=== PATIENT | female | born 1990 | race Caucasian/White ===

== ENCOUNTER 2016-12-20 20:50 | Inpatient (IN) ==
[2016-12-20] MEDS: LACTATED RINGERS 1,000 ML IV SCH (21:15)
[2016-12-20 22:05] LABS: Apearance,Urine Clear (Clear); Bilirubin,Urine Negative (Negative); Blood, Urine NEGATIVE (Negative); Glucose,Urine (UA) Negative (Negative); Hyaline Casts,Urine 1 /LPF (0-3); Ketones,Urine Negative (Negative); Mucus,Urine Occasional /LPF (Occasional); Nitrite,Urine Negative (Negative); Protein,Urine Negative; Urine Color Straw (Yellow); Urine Specific Gravity 1.005 (1.001-1.035)
[2016-12-20 22:06] LABS: Urine Urobilinogen 0.2 EU/DL (0.2-1.0)
[2016-12-21] MEDS: LACTATED RINGERS 1,000 ML IV SCH ×3 (00:44→08:15)
[2016-12-21] MEDS ORDERED: MEPERIDINE 50 MG/1 ML VIAL IV PRN (00:46)
[2016-12-21] MEDS ORDERED: ONDANSETRON 4 MG/2 ML VIAL IV PRN (00:46)
[2016-12-21] MEDS ORDERED: FAMOTIDINE 20 MG/2 ML VIAL IV ONE (02:47)
[2016-12-21] MEDS ORDERED: CITRIC ACID/SODIUM CITRATE 30 ML UDCUP PO ONE (02:47)
[2016-12-21] MEDS ORDERED: fentaNYL 2 MCG/ROPIV 0.2% EPID 150 ML EPIDURAL SCH (02:48)
[2016-12-21] MEDS ORDERED: ePHEDrine 50 MG/ML AMP ONE (02:59)
[2016-12-21] MEDS ORDERED: LACTATED RINGERS 1,000 ML IV SCH (03:00)
[2016-12-21 03:27] LABS: Basophils % 0.2 % (0.0-0.8); Eosinophils # 0.1 10*3/uL (0.0-0.87); Eosinophils % 1.1 % (0.00-10.9); Hematocrit 31.6 VOL% (35.7-47.0); Hemoglobin 10.8 GM/DL (12.0-16.0); Immature Granulocytes % 0.3 %; Immature Granulocytes Absolute 0.04 #; Lymphocytes # 2.2 10*3/uL (1.4-4.0); Mean Corpuscular HGB Conc 34.2 GM/DL (32-36); Mean Corpuscular Hemoglobin 32 PG (27-34); Mean Corpuscular Volume 92.1 FL (87-102); Mean Platelet Volume 11.9 FL (9.6-12.0); Monocytes # 1.1 10*3/uL (0.11-0.8); Monocytes % 9.1 % (1.7-12.7); Neutrophils # 8.8 10*3/uL (1.4-7.4); Neutrophils % 71.3 % (38.7-73.9); Platelet Count 248 T/CUMM (130-400); Red Blood Count 3.43 MC/CUMM (3.8-5.5); Red Cell Distribution Width 13.5 % (9.3-17.3); White Blood Count 12.3 T/CUMM (4-12)
[2016-12-21 03:39] LABS: Alanine Aminotransferase 10 U/L (13-56); Albumin 2.7 G/DL (3.4-5.0); Alkaline Phosphatase 154 U/L (45-117); Aspartate Amino Transferase 12 U/L (0-37); Bilirubin,Total < 0.39 MG/DL (0.2-1.0); Blood Urea Nitrogen 5 MG/DL (7-18); Calcium 8.4 MG/DL (8.5-10.1); Glucose 79 MG/DL (74-106); Osmolality,Calculated 270.7 MOS/KG (273-304); Potassium 3.8 MMOL/L (3.5-5.1); Sodium 138 MMOL/L (136-145); Total Protein 5.4 G/DL (6.4-8.3)
[2016-12-21] MEDS ORDERED: OXYTOCIN/LR 20 UNIT/1,000 ML BAG IV SCH (04:51)
[2016-12-21] MEDS ORDERED: METHYLERGONOVINE 0.2 MG/1 ML AMP ONE (10:05)
[2016-12-21] MEDS ORDERED: miSOPROStol 200 MCG TABLET ONE (10:05)
[2016-12-21] MEDS ORDERED: LIDOCAINE 1% 50 ML VIAL ONE (10:05)
--- NOTE | 2016-12-21 10:52 | OB/GYN History & Physical ---
History of Present Illness Chief complaint: In for c/o uterine contractions. History of present illness: Ms. Billings is a 26 year old female sent to the labor department with complaints of painful regular uterine contractions. Her BENIGNO is 12/28/2016 for an estimated gestational age of 38 and 6/7 weeks. The patient was admitted for management of early labor. The risks and benefits were thoroughly discussed with this patient and she is in agreement with plan. The patient began her care [facility] and she received routine care, her course was uneventful. labs: She is a positive, serologies nonreactive, hepatitis B negative, HIV negative, and GBS culture negative. The patient had a previous bilateral delivery of a viable weighing 6 pounds and 7 ounces she reported no complications with that . Review of systems is negative with exception of above. Home Medications Medication Instructions Recorded Confirmed Type Pantoprazole Tab [Protonix Tab] 40 mg PO DAILY 03/12/15 12/20/16 History Zolpidem Tartrate [Ambien] 10 mg PO BEDTIME 03/12/15 12/20/16 History Allergies Allergy/AdvReac Type Severity Reaction Status Date / Time Penicillins Allergy Severe SHORTNESS Verified 03/13/15 07:45 OF BREATH clindamycin [From Cleocin] AdvReac Mild Redness of Verified 12/20/16 21:21 Skin 12 point system: reviewed and no additional remarkable complaints except as stated Medical,Surgical,& Family Hx - Medical History Psychological: History of: ADHD (INATTENTIVE & HYPERACTIVE) No history of: Anxiety Disorders Neurology: History of: Migraine (HX CHRONIC MIGRAINES AGE 16-19 WITH MENSUS) HEENT: History of: 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) Gastrointestinal: History of: GERD, GI Problems (HIATAL HERNIA) Musculoskeletal: History of: Back/Neck Problems (NECK PAIN), Degenerative Disk Disease, Musculoskeletal Problems (SPONDYLOSIS 2012) Reproductive: History of: Ovarian Cysts (RESOLVED) Comment Only: Reproductive Problems (X1 -NO COMPLICATIONS) Other: History of: Skin Problems (HX LT PERINEAL ABSCESS DRAINAGE 08/24;FOR I&D LT AXILLARY ABSCESS 03/13/15), Miscellaneous Medical Problems (hydrodenitis) - Surgical History Thoracic Surgeries: Patient denies;: Organ Transplant, Lobectomy Abdominal Surgeries: Surgical HX of: EGD Orthopedic Surgeries: Comment Only: Spinal Surgery (NERVE ABLATIONS DR. 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 - Constitutional Vitals: Vital Signs Temp Pulse Resp BP Pulse Ox 12/21/16 07:05 97.5 F L 18 12/21/16 04:00 97.7 F 65 18 127/70 100 12/21/16 02:48 97.9 F 61 20 110/59 12/21/16 00:00 98.3 F 71 20 106/53 12/20/16 21:04 81 20 102/64 98 General appearance: mild distress - Antepartum / Post Antpartum Exam Cervix -Dilatation: 3 cm upon admission Effacement: 70% Station: -1 Presentation: vtx Heart Rate: 140s Abdomen obstetrics: Present: bowel sounds normal Vagina: Present: normal moisture Uterus exam: Present: enlarged Anus/Rectum: Present: normal perianal skin - Neck Neck exam: Present: normal inspection - Respiratory Respiratory exam: Present: clear to auscultation bilaterally - Cardiovascular Cardiovascular exam: Present: regular rate and rhythm - GI/Abdominal GI/Abdominal exam: Present: normal bowel sounds, soft - Extremities Exam Extremities exam: Present: normal inspection - Back Exam Back exam: Present: normal inspection - Neurological Exam Neurological exam: Present: alert, oriented X3 - Psychiatric Psychiatric exam: Present: normal affect, normal mood - Skin Skin exam: Present: normal color, warm Assessment and Plan (1) Active labor at term Status: Acute Assessment and plan: Admit IV Fluids IV Pitocin per protocol Epidural AROM if appropriate Anticipate Current Visit: Yes Results - Labs CBC & BMP: 12/21/16 03:08 12/21/16 03:08
[2016-12-21] MEDS ORDERED: BISACODYL 10 MG SUPP RECTAL PRN (10:56)
[2016-12-21] MEDS ORDERED: DIPH/TET/ACEL PERT BOOSTER VACCINE 0.5 ML VIAL IM ONE (10:56)
[2016-12-21] MEDS ORDERED: HYDROCORTISONE 2.5% RECTAL CREAM 30 GM TUBE TOP PRN (10:56)
[2016-12-21] MEDS ORDERED: WITCH HAZEL PADS 100/JAR TOP PRN (10:56)
[2016-12-21] MEDS ORDERED: RHO(D) IMMUNE GLOBULIN 300 MCG SYRINGE IM ONE (10:56)
[2016-12-21] MEDS ORDERED: MEASLES/MUMPS/RUBELLA VACCINE 0.5 ML VIAL SUBCUT ONE (10:56)
[2016-12-21] MEDS ORDERED: oxyCODONE/ACETAMINOPHEN 5-325 MG TABLET PO PRN (10:56)
[2016-12-21] MEDS ORDERED: ACETAMINOPHEN 325 MG TABLET PO PRN (10:56)
[2016-12-21] MEDS ORDERED: LANOLIN 50% CREAM 0.3 OZ TUBE TOP PRN (10:56)
[2016-12-21] MEDS ORDERED: BENZOCAINE 20%/MENTHOL 0.5% SPRAY 56 GM CAN TOP PRN (10:56)
[2016-12-21] MEDS ORDERED: OXYTOCIN/LR 20 UNIT/1,000 ML BAG IV ONE (10:56)
[2016-12-21] MEDS ORDERED: ACETAMINOPHEN/CODEINE 300-30 MG TABLET PO PRN (10:58)
--- NOTE | 2016-12-21 11:02 | Event Note ---
HPI: Ms. Billings presented to the labor department in active labor. The risks and benefits were discussed with the patient and significant other. All parties were in agreement plan of care. Stage I: The patient was admitted she received IV fluids in an epidural for pain control. During the night the patient experience a CAT 2 tracing which was corrected with oxygenation and position change. She was subsequently started on IV Pitocin per protocol and continued to make adequate cervical changes. With the exception of the periodic category 2 tracing the patient had an uneventful course of labor. She experience spontaneous rupture membranes with clear fluid noted. Stage II: The patient was complaining of pressure and a desire to push. The patient was examined and was noted to be complete. She was instructed to push. She pushed approximately 2 minutes after which time the 's head was delivered. Mouth and nose suctioned on perineum, the remainder of the was delivered at 1011. A viable male infant was noted. Apgars were 8 at 1 minute and 9 at 5 minutes. The was placed on the mom's abdomen for skin to skin bonding. weight was 7 pounds. A cord pH was obtained and sent to the lab. Stage III: Spontaneous delivery of a Young placenta with a three-vessel cord noted. The placenta was further examined and appeared grossly intact. The vagina and cervix was inspected with a first-degree perineal laceration noted. The laceration was repaired in the usual fashion, epidural anesthesia remaining in effect during the repair. Estimated blood loss was approximately 150 mL. At the time of dictation mother and baby are both in stable condition.
[2016-12-21] MEDS ORDERED: MAGNESIUM SULF DRIP 40 GM/1,000 ML ML IV ONE (11:36)
[2016-12-21] MEDS: oxyCODONE/ACETAMINOPHEN 5-325 MG TABLET PO PRN ×2 (14:05→19:50)
[2016-12-21] MEDS: IBUPROFEN 800 MG TABLET PO PRN ×2 (14:05→19:50)
[2016-12-21] MEDS: DOCUSATE SODIUM 100 MG CAPSULE PO SCH (20:26)
[2016-12-22] MEDS: oxyCODONE/ACETAMINOPHEN 5-325 MG TABLET PO PRN ×4 (02:40→20:05)
[2016-12-22 04:59] LABS: Basophils % 0.3 % (0.0-0.8); Eosinophils # 0.2 10*3/uL (0.0-0.87); Eosinophils % 1.3 % (0.00-10.9); Hematocrit 29.5 VOL% (35.7-47.0); Hemoglobin 9.9 GM/DL (12.0-16.0); Immature Granulocytes % 0.3 %; Immature Granulocytes Absolute 0.04 #; Lymphocytes # 3.4 10*3/uL (1.4-4.0); Lymphocytes % 28.4 % (21.3-54.2); Mean Corpuscular HGB Conc 33.6 GM/DL (32-36); Mean Corpuscular Hemoglobin 31 PG (27-34); Mean Corpuscular Volume 92.8 FL (87-102); Mean Platelet Volume 12.2 FL (9.6-12.0); Monocytes # 1.1 10*3/uL (0.11-0.8); Monocytes % 9.2 % (1.7-12.7); Neutrophils # 7.2 10*3/uL (1.4-7.4); Neutrophils % 60.5 % (38.7-73.9); Platelet Count 225 T/CUMM (130-400); Red Blood Count 3.18 MC/CUMM (3.8-5.5); Red Cell Distribution Width 13.6 % (9.3-17.3); White Blood Count 11.9 T/CUMM (4-12)
[2016-12-22] MEDS: IBUPROFEN 800 MG TABLET PO PRN ×3 (08:35→20:05)
[2016-12-22] MEDS: DOCUSATE SODIUM 100 MG CAPSULE PO SCH ×2 (08:45→20:30)
--- NOTE | 2016-12-22 10:02 | OB/GYN Progress Note ---
Assessment and Plan (1) Active labor at term Status: Acute Assessment and plan: Admit IV Fluids IV Pitocin per protocol Epidural AROM if appropriate Anticipate Current Visit: Yes (2) Vaginal delivery Status: Acute Assessment and plan: Initiate routine orders. Current Visit: Yes TODDLER NANNY - PN: Subj Interval history: Stable with no complaints. Bonding well with . Exam TODDLER NANNY - Constitutional Vitals: Vital Signs Temp Pulse Resp BP Pulse Ox 12/22/16 09:43 20 12/22/16 08:00 59 L 18 12/22/16 07:11 97.5 F L 59 L 18 105/57 98 12/22/16 04:00 97.5 F L 61 18 116/72 95 12/22/16 00:00 97.2 F L 61 18 120/62 96 12/21/16 20:00 96.9 F L 53 L 18 126/79 95 12/21/16 15:50 98.1 F 67 18 108/58 98 12/21/16 13:45 91 H 18 108/65 96 12/21/16 13:15 57 L 18 119/76 97 12/21/16 12:45 97.7 F 69 18 108/66 99 12/21/16 12:00 97.1 F L General appearance: no acute distress - Antepartum / Post Post Exam Breast: bilateral: normal Abdomen obstetrics: Present: bowel sounds normal Vagina: Present: discharge (light lochia rubra) Uterus exam: Present: enlarged (FF ML) - Respiratory Respiratory exam: Present: clear to auscultation bilaterally - Cardiovascular Cardiovascular exam: Present: regular rate and rhythm - GI/Abdominal GI/Abdominal exam: Present: normal bowel sounds, soft - Extremities Exam Extremities exam: Present: normal inspection - Neurological Exam Neurological exam: Present: alert, oriented X3 - Psychiatric Psychiatric exam: Present: normal affect, normal mood - Skin Skin exam: Present: normal color, warm Results - Labs CBC & BMP: 12/22/16 04:42 12/21/16 03:08
--- NOTE | 2016-12-22 10:05 | Discharge Summary ---
Hospital Course - Hospital Course Hospital Course: Ms Billings is a 26-year-old female who presented to the labor department in active labor. She subsequently delivered a viable with no problems. She has followed a normal course and she has done well. Her bleeding is minimal with no odor. Her fundus was firm and midline. Her perineum was intact with no edema. She denies any pain in her legs. She is followed without difficulty. Her pain is controlled with medications. She will be discharged to home prescriptions for pain and a follow-up appointment in our office. She is bonding well with her infant. Diagnosis - Discharge Diagnosis (1) Active labor at term Status: Acute (2) Vaginal delivery Status: Acute Specialty Discharge - Follow Up or Referrals Follow up with: Ashley Olivarez MD [Physician] - (follow up in 6 weeks) Discharge Plan - Discharge Data Disposition: Disch To Home/Self Care Condition at Discharge: Stable Discharge Diet: advance to your usual diet, regular diet Activity: resume usual activities as tolerated Hygiene: may shower Weight Bearing at Discharge: weight bear as tolerated Driving: no restrictions Contact your physician if you experience:: fever over 101, pain uncontrolled by pain medications - Discharge Medications New Acetamin/Codeine 300-30 Tab [Tylenol/Codeine #3] 2 tablet PO Q4H PRN #30 tablet PRN Reason: Pain Mild (1-3) Ferrous Sulfate Tab [Feosol Original Tab] 325 mg PO BID #60 tablet Ibuprofen Tab [Motrin Tab] 800 mg PO Q6H PRN #30 tablet PRN Reason: Pain Moderate (4-7) No Action Pantoprazole Tab [Protonix Tab] 40 mg PO DAILY Zolpidem Tartrate [Ambien] 10 mg PO BEDTIME - Follow Up or Referral - Forms/Instructions Exam - Constitutional Vitals: Period Temp Pulse Resp BP Sys/Jackson Pulse Ox Last 24 Hr 96.9 F-98.1 F 53-91 18-20 105-126/57-79 95-99 General appearance: no acute distress - Head Head exam: Present: normal inspection - Neck Neck exam: Present: normal inspection - Respiratory Respiratory exam: Present: clear to auscultation bilaterally - Cardiovascular Cardiovascular exam: Present: regular rate and rhythm - GI/Abdominal GI/Abdominal exam: Present: normal bowel sounds, soft - Extremities Exam Extremities exam: Present: normal inspection - Back Exam Back exam: Present: normal inspection - Neurological Exam Neurological exam: Present: alert, oriented X3 - Psychiatric Psychiatric exam: Present: normal affect, normal mood - Skin Skin exam: Present: normal color, warm Discharge Results Labs on day of discharge: Labs from last 24 hours 12/22/16 04:42 WBC 11.9 RBC 3.18 L Hgb 9.9 L Hct 29.5 L MCV 92.8 MCH 31 MCHC 33.6 RDW 13.6 Plt Count 225 MPV 12.2 H Neut % (Auto) 60.5 Lymph % (Auto) 28.4 [place] % (Auto) 9.2 Eos % (Auto) 1.3 Baso % (Auto) 0.3 Neut # (Auto) 7.2 Lymph # (Auto) 3.4 [place] # (Auto) 1.1 H Eos # (Auto) 0.2 Baso # (Auto) 0.0 Immature Gran % 0.3 Nucleated RBC % 0.0 Immature Gran # 0.04 Nucleated RBCs # 0.00 DS: Provider Date of admission: 12/20/16 20:50 Primary care physician: . No PCP Attending physician on admission: Ashley Hitchcock MD Consults: 12/21/16 02:46 Consult to Anesthesiology [CONS] Routine Consulting Provider: Reason for Anesthesiology: Epidural Consult Comment: Epidural for pain managment 12/21/16 10:57 Consult to Retail Sales Clerk [CONS] Routine Consult Retail Sales Clerk: Breast Feeding Discharging clinician: Nanda Glass CNM Expected date of discharge: 12/23/16
[2016-12-22] MEDS: FERROUS SULFATE 325 MG TABLET PO SCH ×2 (10:30→20:30)
[2016-12-23] MEDS: oxyCODONE/ACETAMINOPHEN 5-325 MG TABLET PO PRN ×2 (02:15→08:00)
[2016-12-23] MEDS: IBUPROFEN 800 MG TABLET PO PRN (02:15)
[2016-12-23 07:25] VITALS: BP 119/77
[2016-12-23] MEDS: DOCUSATE SODIUM 100 MG CAPSULE PO SCH (08:20)
[2016-12-23] MEDS: FERROUS SULFATE 325 MG TABLET PO SCH (08:21)
== END 2016-12-23 10:20 | disposition home or self-care (01) | DRG 775 ==
LOC: EDSTATUS 20:50 → N.LD 20:50 → N.LDOUT 20:50 → N.LD 20:52 → N.OB 12-21 12:50
PROVIDERS: ADMIT Obstetrics & Gynecology; ATTEND Obstetrics & Gynecology